=== PATIENT | male | born 1960 | race Caucasian/White ===

== ENCOUNTER 2017-01-24 10:39 | Outpatient (CLI) | payer OTHER ==
[2015-04-28 10:38] VITALS: BP 142/66
== END 2017-01-24 10:40 ==
LOC: LAB 10:39
PROVIDERS: ATTEND Internal Medicine Endocrinology, Diabetes & Metabolism
DX: E89.0 Postprocedural hypothyroidism (principal)
CPT/HCPCS: 36415; 84439; 84443

== ENCOUNTER 2017-02-28 15:46 | Outpatient (CLI) | payer OTHER ==
[2015-04-28 10:38] VITALS: BP 142/66
[2017-02-28 16:05] LABS: BASOPHILS % 0.7 (0.0-1.5); EOSINOPHILS % 1.5 % (0.0-6.8); LYMPHOCYTES # 2.1 # k/uL (0.6-4.0); MEAN CORPUSCULAR HEMOGLOBIN 32.1 pg (28.0-34.0); MONOCYTES # 0.4 # k/uL (0.0-0.9); MONOCYTES % 4.2 % (0.0-11.0); NEUTROPHILS # 5.8 # k/uL (1.4-7.7)
[2017-02-28 16:30] LABS: eGFR (African) > 60; eGFR (Non-African) > 60
== END 2017-02-28 15:51 | disposition home or self-care (01) ==
LOC: LAB 15:46
PROVIDERS: ATTEND Family Medicine
DX: Z00.00 Encounter for general adult medical examination without abnormal findings (principal)
CPT/HCPCS: 36415; 80053; 80061; 83036; 85025

== ENCOUNTER 2017-10-08 19:00 | Emergency (ER) | payer OTHER ==
[2017-10-08 19:44] LABS: BASOPHILS % 0.4 (0.0-1.5); EOSINOPHILS % 1.7 % (0.0-6.8); MEAN CORPUSCULAR HEMOGLOBIN 31.5 pg (28.0-34.0); MEAN CORPUSCULAR VOLUME 87.9 fl (80.0-100.0); MONOCYTES % 3.8 % (0.0-11.0); NEUTROPHILS # 8.2 # k/uL (1.4-7.7)
[2017-10-08] MEDS: SILVER NITRATE APPLICATOR STICK TP STA (19:50)
--- NOTE | 2017-10-08 20:21 | ED Physician Documentation ---
General Adult - HISTORIAN Historian: patient - HPI Stated Complaint: bleeding Chief Complaint: General Adult Onset: hours Timing: still present Severity: mild Further Comments: yes (Pt is a 57 yo male who was using a lufa sponge on his R leg, and now has a punctate site of bleeding that will not stop after several hours.) - ROS CONST: no problems EYES/ENT: none CVS/RESP: none GI/: none MS/SKIN/LYMPH: other (punctate bleeding site, R leg that will not stop.) - PAST HX Past History: other (GERD, HLD, HTN, stomach surgery 30 yrs ago, hypothyroidism) Allergies/Adverse Reactions: Allergies Allergy/AdvReac Type Severity Reaction Status Date / Time No Known Allergies Allergy Verified 10/08/17 19:22 Home Medications: Ambulatory Orders Medication Instructions Recorded Levothyroxine Sodium 125 mcg PO DAILY #90 u2 01/12/13 - SOCIAL HX Smoking History: non-smoker - FAMILY HX Family History: No - VITAL SIGNS Vital Signs: Vital Signs Temp Pulse Resp BP Pulse Ox 105 H 16 183/102 95 10/08/17 19:00 10/08/17 19:00 10/08/17 19:00 10/08/17 19:00 - REVIEWED ASSESSMENTS Nursing Assessment Reviewed: Yes Vitals Reviewed: Yes Progress - Progress Progress: Silver nitrate cauterization applied to punctate bleeding site R leg. Bleeding stopped. Telfa dressing applied. ED Results Lab/Radiology - Lab Results Lab Results: Lab Results 10/08/17 10/08/17 19:35 19:35 WBC 10.60 K/ul K/ul (4.00-12.00) RBC 4.63 M/ul M/ul (3.90-5.20) Hgb 14.6 g/dL g/dL (12.0-18.0) Hct 40.7 % % (37.0-53.0) MCV 87.9 fl fl (80.0-100.0) MCH 31.5 pg pg (28.0-34.0) MCHC 35.8 g/dL g/dL (30.0-36.0) RDW 13.4 % % (11.3-14.3) Plt Count 178 K/mm3 K/mm3 (130-400) Neut % (Auto) 77.0 % % (39.0-79.0) Lymph % (Auto) 16.2 % % (16.0-50.0) [place] % (Auto) 3.8 % % (0.0-11.0) Eos % (Auto) 1.7 % % (0.0-6.8) Baso % (Auto) 0.4 (0.0-1.5) Neut # (Auto) 8.2 # k/uL H # k/uL (1.4-7.7) Lymph # (Auto) 1.7 # k/uL # k/uL (0.6-4.0) [place] # (Auto) 0.4 # k/uL # k/uL (0.0-0.9) Eos # (Auto) 0.2 # k/uL # k/uL (0.0-0.6) Baso # (Auto) 0.0 # k/uL # k/uL (0.0-0.5) Reactive Lymphs % 0.8 % % (0.0-5.0) Reactive Lymphs # 0.1 # k/uL # k/uL (0.0-0.8) PT 10.6 Seconds Seconds (9.4-11.6) INR 1.01 (0.9-1.2) APTT 23.3 Seconds L Seconds (24.5-32.8) - Orders Orders: ED Orders Category Date Time Status CBC/PLATELET/DIFF Routine Lab 10/08/17 19:35 Completed PTINR [PT-INR] Routine Lab 10/08/17 19:35 Completed PTT Routine Lab 10/08/17 19:35 Completed General Adult Physical Exam - PHYSICAL EXAM GENERAL APPEARANCE: no distress NECK: normal inspection, supple RESPIRATORY: no resp distress, chest non-tender CVS: reg rate & rhythm, heart sounds normal BACK: normal inspection, no CVA tenderness SKIN: other (punctate site of slow bleeding, R calf) EXTREMITIES: non-tender, normal range of motion, no evidence of injury NEURO: oriented X3, motor nml, sensation nml Discharge Clincal Impression: bleeding site on leg Referrals: Iram Velasquez MD [Primary Care Provider] - Condition: Good Disposition: 01 HOME, SELF-CARE Decision to Admit: NO Decision Time: 20:21
[2017-10-08 20:48] VITALS: BP 118/64
== END 2017-10-08 20:40 | disposition home or self-care (01) ==
LOC: ED 19:00
DX: S81.831A Puncture wound without foreign body, right lower leg, initial encounter (principal); X58.XXXA Exposure to other specified factors, initial encounter; Y93.9 Activity, unspecified; Y99.9 Unspecified external cause status
CPT/HCPCS: 85025; 85610; 85730; 99283

== ENCOUNTER 2018-02-27 11:12 | Outpatient (CLI) | payer OTHER | END 2018-02-27 11:13 | LOC: LAB 11:12 | PROVIDERS: ATTEND Internal Medicine Endocrinology, Diabetes & Metabolism | DX: E03.9 Hypothyroidism, unspecified (principal) | CPT/HCPCS: 36415; 84436; 84443 ==

== ENCOUNTER 2018-04-25 11:26 | Outpatient (CLI) | payer OTHER ==
[2018-04-25 12:00] LABS: BASOPHILS % 0.4 (0.0-1.5); EOSINOPHILS % 0.8 % (0.0-6.8); MEAN CORPUSCULAR HEMOGLOBIN 31.4 pg (28.0-34.0); MEAN CORPUSCULAR VOLUME 91.3 fl (80.0-100.0); MONOCYTES % 4.5 % (0.0-11.0); NEUTROPHILS # 5.1 # k/uL (1.4-7.7)
[2018-04-25 12:04] LABS: eGFR (African) > 60; eGFR (Non-African) > 60
== END 2018-04-25 11:28 ==
LOC: LAB 11:26
PROVIDERS: ATTEND Physician Assistant
DX: E78.2 Mixed hyperlipidemia (principal); R42 Dizziness and giddiness
CPT/HCPCS: 36415; 80053; 80061; 84439; 84443; 84481; 85025

== ENCOUNTER 2019-03-13 13:34 | Outpatient (CLI) | payer OTHER ==
[2019-03-13 14:17] LABS: eGFR (Non-African) > 60
== END 2019-03-13 13:36 ==
LOC: LAB 13:34
PROVIDERS: ATTEND Family Medicine
DX: Z00.00 Encounter for general adult medical examination without abnormal findings (principal); E05.00 Thyrotoxicosis with diffuse goiter without thyrotoxic crisis or storm; Z12.5 Encounter for screening for malignant neoplasm of prostate
CPT/HCPCS: 36415; 80053; 80061; 84443; G0103

== ENCOUNTER 2019-10-05 11:44 | Outpatient (CLI) | payer OTHER ==
[2019-10-05 12:09] LABS: BASOPHILS % 0.6 % (0.0-1.5); NEUTROPHILS # 6.5 # k/uL (1.4-7.7)
[2019-10-05 12:55] LABS: eGFR (Non-African) > 60
== END 2019-10-05 11:54 ==
LOC: RT 11:44
PROVIDERS: ATTEND Nurse Practitioner Family
DX: I10 Essential (primary) hypertension (principal); E89.0 Postprocedural hypothyroidism
CPT/HCPCS: 36415; 80053; 84443; 84484; 85025; 93005